=== PATIENT | male | born 1980 | race Hispanic/Latino ===

== ENCOUNTER 2022-11-24 14:34 | Emergency (ER) | payer OTHER ==
[~2022-11-24] VITALS: Ht 175.3 cm; Wt 90.7 kg
[2022-11-24 14:36] VITALS: BP 178/87
[2022-11-24 14:49] LABS: APPEARANCE,URINE CLOUDY (CLEAR); BILIRUBIN,URINE NEGATIVE (NEGATIVE); COLOR,URINE YELLOW (YELLOW); GLUCOSE, URINE (UA) NEGATIVE (NEGATIVE); KETONES,URINE NEGATIVE (NEGATIVE); LEUKOCYTE ESTERASE ,URINE 500 Leu/uL (NEGATIVE); NITRATE,URINE NEGATIVE (NEGATIVE); OCCULT BLOOD,URINE MODERATE (NEGATIVE); PH,URINE 5.5 (5.0-8.0); PROTEIN,URINE 20 mg/dL (NEGATIVE); UROBILINOGEN,URINE 0.2 mg/dL (0.2-1.0)
[2022-11-24 14:56] LABS: BACTERIA,URINE FEW /HPF (None Seen); MUCUS,URINE RARE LPF (None Seen); SQUAMOUS EPITHELIAL CELL,UR RARE /HPF (0-2); WBC,URINE TNTC /HPF (0-1)
[2022-11-24 15:37] LABS: HEMATOCRIT 45.5 % (42-54); MEAN CORPUSCULAR HEMOGLOBIN 32.2 pg (27.0-33.0); MEAN CORPUSCULAR HGB CONC 36.3 g/dL (32.0-36.0); MEAN CORPUSCULAR VOLUME 88.9 fL (79-99); PLATELET COUNT (AUTO) 209 K/uL (130-400); RED BLOOD CELL COUNT(AUTO) 5.12 MIL/uL (4.50-6.20); RED CELL DISTRIBUTION WIDTH 12.2 % (11.0-15.5); WHITE BLOOD COUNT (AUTO) 8.2 K/uL (4.8-10.8)
[2022-11-24 15:50] LABS: CREATININE 1.4 mg/dL (0.5-1.5); POTASSIUM 3.7 mmol/L (3.5-5.1)
[2022-11-24 15:55] LABS: ALBUMIN 3.6 g/dL (3.5-5.0); TOTAL PROTEIN, SERUM 7.9 g/dL (6.0-8.3)
[2022-11-24] MEDS ORDERED: SULF1TAB42 PO (15:58)
[2022-11-24] MEDS ORDERED: AZITHROMYCIN 250 MG TABLET PO ONE (16:00)
[2022-11-24] MEDS ORDERED: CEFTRIAXONE 500MG VIAL IV SCH (16:00)
[2022-11-24 17:20] LABS: RAPID PLASMA REAGIN REACTIVE (NONREACTIVE)
[2022-11-24 17:21] LABS: RAPID PLASMA REAGIN TITER REACTIVE >1:16 (NONREACTIVE)
== END 2022-11-24 16:22 | disposition home or self-care (01) ==
LOC: EDH 14:34
DX: Z20.2 Contact with and (suspected) exposure to infections with a predominantly sexual mode of transmission (principal); N48.89 Other specified disorders of penis; Z79.2 Long term (current) use of antibiotics
CPT/HCPCS: 99283; 96374; 86780; 86592; 80053; 85027; 87088; 87536; 87797; 86701; 87486; 81001; 36415; 87390; J0696

== ENCOUNTER 2022-11-24 18:04 | Emergency (ER) | payer OTHER ==
[~2022-11-24] VITALS: Ht 175.3 cm; Wt 90.7 kg
[~2022-11-24 18:04] MED LIST: SULF1TAB42 PO
[2022-11-24] MEDS ORDERED: PENICILLIN G BENZATHINE LA 1.2 MILUNITS/2 ML SYG IM SCH (18:30)
[2022-11-24 18:32] VITALS: BP 138/88
== END 2022-11-24 18:47 | disposition home or self-care (01) ==
LOC: EDH 18:04
DX: Z20.2 Contact with and (suspected) exposure to infections with a predominantly sexual mode of transmission (principal); Z79.2 Long term (current) use of antibiotics
CPT/HCPCS: 99283; 96372; J0561